=== PATIENT | female | born 1960 | race Asian ===

== ENCOUNTER 2017-06-30 19:18 | Emergency (ER) | payer OTHER ==
[2017-06-30 21:19] VITALS: BP 122/76
== END 2017-06-30 21:19 | disposition home or self-care (01) ==
LOC: ED 19:18
DX: S81.051A Open bite, right knee, initial encounter (principal); S31.825A Open bite of left buttock, initial encounter; W54.0XXA Bitten by dog, initial encounter; Y93.89 Activity, other specified; Y92.89 Other specified places as the place of occurrence of the external cause; Y99.8 Other external cause status